=== PATIENT | female | born 1995 | race Caucasian/White ===

== ENCOUNTER 2017-11-04 14:05 | Inpatient (IN) | payer OTHER ==
[~2017-11-04] VITALS: Ht 160 cm; Wt 56.8 kg
[2017-11-08] VITALS (45 sets, daily range): BP systolic 104–152; BP diastolic 50–84; PULSE 58–141; TEMP 97.6–98.6
[2017-11-08] MEDS ORDERED: PRENATAL PLUS (07:28)
[2017-11-08 08:35] LABS: BASO % 0.2 % (0.0-2.0); EOS % 0.5 % (0-4.0); GRAN # 2.3 (1.4-6.5); GRAN % 51.8 % (42.2-75.2); LYMPH # 1.7 (1.2-3.4); LYMPH % 38.4 % (20.0-51.0); MEAN CELL VOLUME 85 fl (80.0-100.0); MEAN CORPUSCULAR HGB CONC 32 g/dl (33.0-37.0); MEAN PLATELET VOLUME 11.8 fl (7.4-10.4); MONO # 0.4 (0.1-0.6); MONO % 8.6 % (1.7-9.3); PLATELET COUNT 199 K/mm3 (130-400); RED BLOOD COUNT 3.43 M/mm3 (4.10-5.30); REDCELL DISTRIBUTION WIDTH-CV 13.3 % (11.5-14.5)
[2017-11-08 08:48] LABS: HEMOGLOBIN 9.4 g/dl (12.5-16.0); MEAN CORPUSCULAR HEMOGLOBIN 27 pg (27.0-31.0)
[2017-11-08] MEDS ORDERED: PERCOCET 325 MG1 TA2 PO (10:15)
[2017-11-08] MEDS ORDERED: MOTRIN 800800 MG/TAB PO (10:15)
[2017-11-09 00:16] VITALS: BP 99/66; PULSE 82; TEMP 97.7
[2017-11-09 05:30] VITALS: BP 110/71; BP 123/83; PULSE 62; PULSE 99; TEMP 97.8; TEMP 98.3
[2017-11-09 08:00] VITALS: BP 98/58; PULSE 93; TEMP 98
[2017-11-09 12:00] VITALS: BP 94/50; PULSE 100; TEMP 98.3
[2017-11-09 16:00] VITALS: BP 99/58; PULSE 92; TEMP 97.8
[2017-11-09 19:57] VITALS: BP 97/56; PULSE 96; TEMP 97.1
[2017-11-10 08:00] VITALS: BP 98/61; PULSE 99; TEMP 97.6
== END 2017-11-10 12:35 | disposition home or self-care (01) | DRG 775 ==
LOC: LDR 11-08 05:31 → OB 11-08 20:20
PROVIDERS: Obstetrics & Gynecology
PROC: 10E0XZZ Delivery of Products of Conception, External Approach (ICD-10-PCS; principal; 2017-11-08)
PROC: 0KQM0ZZ Repair Perineum Muscle, Open Approach (ICD-10-PCS; 2017-11-08)
PROC: 3E033VJ Introduction of Other Hormone into Peripheral Vein, Percutaneous Approach (ICD-10-PCS; 2017-11-08)
PROC: 10907ZC Drainage of Amniotic Fluid, Therapeutic from Products of Conception, Via Natural or Artificial Opening (ICD-10-PCS; 2017-11-08)
DX: O43.123 Velamentous insertion of umbilical cord, third trimester (principal); Z3A.39 39 weeks gestation of pregnancy; Z37.0 Single live birth; O70.1 Second degree perineal laceration during delivery; Z22.330 Carrier of Group B streptococcus; O99.02 Anemia complicating childbirth; K90.0 Celiac disease
CPT/HCPCS: J2405; J2540; J2590; J2795; J7120